=== PATIENT | female | born 1935 | race Caucasian/White ===

== ENCOUNTER → 2016-04-30 | Outpatient (CLI) | payer MEDICARE, BC ==
[~2016-04-30] MED LIST: AMBIEN DPS5 MG PO; BAYER CHEWABLE81 MG PO; BIOTENE237 ML PO; GLIPIZIDE ER10 MG PO; GLUCAGON EMERGEN1 MG IM; HYDROCODON-ACE1 EAC2 PO; KLOR-CON M2020 ME1 PO; LANTUS SOL100 UNIT/1 SQ; LASIX DPS40 MG PO; LASIX DPS80 MG PO; LIPITOR DPS10 MG PO; LUMIGAN 0.01%2.5 ML OU; MIRALAX PACKET17 GM PO; MORPHINE SULFAT15 M1 PO; OMNICEF DPS300 MG PO; PROBIOTIC1 EAC1 PO; TOPROL XL50 MG PO; TRIMPEX DPS100 MG PO; VITAMIN D-32000 UNI1 PO
== END | disposition home or self-care (01) ==
LOC: EDT 09:35
DX: E11.42 Type 2 diabetes mellitus with diabetic polyneuropathy (principal)

== ENCOUNTER → 2016-05-08 | Outpatient (CLI) | payer MEDICARE, BC | END | disposition home or self-care (01) | LOC: NUE 14:55 | DX: E11.42 Type 2 diabetes mellitus with diabetic polyneuropathy (principal); Z71.3 Dietary counseling and surveillance | CPT/HCPCS: 258 ==